=== PATIENT | female | born 1960 | race Caucasian/White ===

== ENCOUNTER 2017-02-12 06:35 | Day surgery (SDC) | payer BC, SELFPAY ==
[2017-02-10 18:00] LABS: HEMOGLOBIN 14.2 g/dL (12.0-16.0)
--- NOTE | ~2017-02-12 | OP ---
Record Of Operation [facility] [address] [place]. [address] NAME: PO JONES : 64 STATUS : [place] [facility] PAT#: [id number] AGE: 56 ADM/REG DATE : 02/12/17 MR#: [id number] REPORT SERV DATE: 02/12/17 DICTATED BY: PAVAN BACK DATE: 02/12/17 REPORT STATUS : Draft TRANSCRIBED BY: MODL DATE: 02/12/17 DATE OF PROCEDURE: 02/12/2017 PREOPERATIVE DIAGNOSIS: Hematoma/seroma/pseudocapsule of fat necrosis right buttock. PREOPERATIVE DIAGNOSIS: Hematoma/seroma/pseudocapsule of fat necrosis right buttock. PROCEDURE: Excision of above entity. SURGEON: Pavan Back M.D. DESCRIPTION OF OPERATIVE PROCEDURE: The patient was brought to operating suite, underwent satisfactory general endotracheal anesthesia without incident. She was rolled in the prone position with appropriate padding placed. The patient had a remote (three months ago) traumatic injury to the right buttock with marked bruising that eventually resolved into a large "lump" on the buttock. 0.5% Marcaine with epinephrine was used as infiltrating anesthesia. A curvilinear linear incision was made in the lower skin of the buttock dissecting through the skin and subcutaneous tissue bluntly and with cautery and suction. Initial material encountered was liquefied fat necrosis, had a consistency of melted butter, and underwent culture. Further blunt dissection to the mass revealed a "pseudocapsule" of compressed fat and fibrous tissue with a smooth inter honeycomb-type lining. This was freed up bluntly and consisted of compressed fat necrosis. The entire capsule was excised from the surrounding subcutaneous tissues and off the gluteal musculature in its entirety. Hemostasis was assured. The wound was irrigated copiously and a 15-Persian Flaquito drain was brought out through a stab wound in the right lateral buttock cheek and sutured the skin with 3-0 silk. Subcutaneous tissue was closed with interrupted 3 0 Vicryl. Running subcuticular stitch of 4-0 Vicryl for the skin. Additional local anesthesia instilled in the drain as well as a field block around the upper periphery of the resulting cavity. Dermabond skin adhesive was placed. Biopatch to the drain with ABD pads. The patient tolerated the procedure well and was returned to PACU in stable condition. At termination of procedure, sponge, needle, lap, and instrument counts were correct x3. ESTIMATED BLOOD LOSS: 15 mL to 20 mL. WR/MODL Pavan Back M.D. / [id number] CC: Record Of Operation [address] [address] NAME: PO JONES : 64 STATUS : [place] [facility] PAT#: [id number] AGE: 56 ADM/REG DATE : 02/12/17 MR#: [id number] REPORT SERV DATE: 02/12/17 DICTATED BY: PAVAN BACK DATE: 02/12/17 REPORT STATUS : Draft TRANSCRIBED BY: MODL DATE: 02/12/17 Pavan Back M.D.
[~2017-02-12 06:35] MED LIST: MELATONIN10 M2 PO; ZANTAC150 MG PO
== END 2017-02-12 23:59 | disposition home or self-care (01) ==
LOC: MSC 06:35
PROVIDERS: Specialist
PROC: 0KBN0ZX Excision of Right Hip Muscle, Open Approach, Diagnostic (ICD-10-PCS; principal; 2017-02-12 07:45)
DX: M79.89 Other specified soft tissue disorders (principal); F41.9 Anxiety disorder, unspecified; G43.909 Migraine, unspecified, not intractable, without status migrainosus; K21.9 Gastro-esophageal reflux disease without esophagitis; K58.9 Irritable bowel syndrome, unspecified; F32.9 Major depressive disorder, single episode, unspecified; G89.29 Other chronic pain; M54.2 Cervicalgia; Z98.890 Other specified postprocedural states; Z90.49 Acquired absence of other specified parts of digestive tract; Z79.899 Other long term (current) drug therapy; Z90.710 Acquired absence of both cervix and uterus
CPT/HCPCS: 85014; 85018; 87070; 87205; 88304; 88305; 93005; A9270-GY; J0690; J2250; J2270; J2405; J2710; J3010